=== PATIENT | male | born 1975 | race Caucasian/White ===

== ENCOUNTER → 2016-07-13 | Outpatient (CLI) | payer OTHER ==
[~2016-07-13] MED LIST: ACTOS45 MG PO; GABAPENTIN300 MG PO; HUMALOG100 UNIT/1 SC; LIPITOR TAB 2020 MG PO; LOSARTAN POTASS50 MG PO; NORCO 7.5-3251 EACH PO; TOUJEO SC; ULTRAM50 MG PO
[2016-07-13 12:45] LABS: BUN/CREATININE RATIO 18 (0-10)
== END ==
LOC: OPSV2 11:00
PROVIDERS: Orthopaedic Surgery
DX: Z01.810 Encounter for preprocedural cardiovascular examination (principal); Z01.812 Encounter for preprocedural laboratory examination; G56.02 Carpal tunnel syndrome, left upper limb; E11.9 Type 2 diabetes mellitus without complications; I10 Essential (primary) hypertension
CPT/HCPCS: 36415; 80048; 93005

== ENCOUNTER → 2016-07-20 | Day surgery (SDC) | payer OTHER ==
[~2016-07-20] VITALS: Ht 177.8 cm; Wt 175.1 kg
== END | disposition home or self-care (01) ==
LOC: OR 09:42
PROVIDERS: Orthopaedic Surgery
PROC: 01N50ZZ Release Median Nerve, Open Approach (ICD-10-PCS; principal; 2016-07-20 13:00)
DX: G56.02 Carpal tunnel syndrome, left upper limb (principal); I10 Essential (primary) hypertension; E78.5 Hyperlipidemia, unspecified; E11.9 Type 2 diabetes mellitus without complications; M19.90 Unspecified osteoarthritis, unspecified site; G89.29 Other chronic pain; E66.01 Morbid (severe) obesity due to excess calories; M54.9 Dorsalgia, unspecified; F17.210 Nicotine dependence, cigarettes, uncomplicated; Z79.4 Long term (current) use of insulin; Z79.899 Other long term (current) drug therapy; Z90.49 Acquired absence of other specified parts of digestive tract
CPT/HCPCS: 82962; J0690; J2250; J3010; J7030; J7120